=== PATIENT | female | born 1995 | race Two or more races ===

== ENCOUNTER 2016-09-28 08:14 | Emergency (ER) | payer OTHER ==
[~2016-09-28] VITALS: Ht 160 cm; Wt 77.1 kg
--- NOTE | ~2016-09-28 | CT2 ---
[facility] A Service of [facility] RADIOLOGY TEXT RESULTS PATIENT: OLEG NOE LOCATION: [facility] : [birth year] UNIT #: [id number] AGE: [address]: Jasmin Marie APRN SEX: F ORDER DR: [id number] [facility] [address] [place], [place] [address] [id number] MR#: [id number] #: [id number] NAME: OLEG NOE : 1995 SEX: F STUDY DATE/TIME: 09/28/2016 11:04 UNIT: [facility] ROOM: STUDY DESCRIPTION: CT Abd and Pelv W Cont Attending Physician: Jasmin Marie A.P.R.N. Ordering Physician: Ed Blaze Verdugo M.D. [facility]AG[facility] REPORT This report is preliminary unless electronic signature is present EXAM CT abdomen and pelvis with contrast, 09/28/2016, 1104 hours. CLINICAL HISTORY 21-year-old with epigastric pain, right-sided abdominal pain in the right lower quadrant with nausea, vomiting and diarrhea since 09/27/2016. COMPARISON None. TECHNIQUE Dynamic helical CT images were obtained from the lung bases through the pubic symphysis with intravenous contrast only. Sagittal and coronal reconstructions were performed. Total exam DLP 1068 mGy-cm. This CT exam was performed with one or more of the following radiation dose reduction techniques: automatic exposure control, adjustment of mA and/or kV according to patient size, and iterative reconstruction. FINDINGS Images through the lung bases are clear. There are no effusions. The distal esophagus is normal. Images through the abdomen post contrast demonstrate a normal appearance to the liver, spleen, pancreas, gallbladder and bile ducts. The adrenal glands are normal. The kidneys enhance normally and there is excretion into nondilated renal collecting systems and ureters. No ureteral calculus is seen. The bladder is normal. The abdominal aorta is normal in caliber. Unopacified stomach is contracted but normal in appearance. There is no small bowel distension. There is no small bowel wall thickening. The appendix is normal. Terminal ileum and cecum are normal. The colon is decompressed. There is no colonic wall thickening. [facility] A Service of [facility] RADIOLOGY TEXT RESULTS PATIENT: OLEG NOE NIDASMITA LOCATION: [facility] : [birth year] UNIT #: [id number] AGE: [address]: Jasmin Marie APRN SEX: F ORDER DR: CT pelvis demonstrates a normal sized uterus with intrauterine device present. There are small physiologic follicular cysts on the ovaries. There is no free fluid. Bone window images demonstrate no lumbar abnormalities. There is mild sclerotic change bilaterally at the sacroiliac joints. IMPRESSION 1. Essentially negative CT scan of the abdomen and pelvis with IV contrast. The gallbladder, bile ducts, pancreas, kidneys and ureters, terminal ileum and appendix are normal. There is no distension of the small bowel or colon. 2. Negative CT pelvis with intrauterine device within the uterus. 3. Mild sclerotic change of both sacroiliac joints. Dictated by... Radha Espinosa M.D. THIS IS AN ELECTRONICALLY VERIFIED REPORT Radha Espinosa M.D. at 09/29/2016 3:27 PM Kalyan TD: 09/28/2016 16:16 JOB #: [id number] MEDICAL IMAGING REPORT Page 1 of 1 COPY
[2016-09-28 09:51] LABS: BASOPHIL% 0.2 % (0-2.5); EOSINOPHIL% 0.2 % (0.0-7.0); HEMOGLOBIN 12.5 gm/dL (12.0-16.0); LYMPHOCYTE# 0.7 X10e3 (1.0-3.5); LYMPHOCYTE% 6.5 % (17.0-45.0); MEAN CELL VOLUME 82.4 FL (83-96); MEAN CORPUSCULAR HEMOGLOBIN 27.2 PG (28-34); MONOCYTE# 0.5 X10e3 (0-1.0); MONOCYTE% 4.1 % (3.0-12.0); NEUTROPHIL# 9.9 X10e3 (1.5-7.1); PLATELET COUNT 206 X10e3 (140-420); RED BLOOD COUNT 4.61 X10e (3.90-5.30); RED CELL DISTRIBUTION WIDTH 13.3 % (11.0-15.5); WHITE BLOOD COUNT 11.2 X10e3 (4.0-10.5)
[2016-09-28 09:52] LABS: DIFF IND NO
[2016-09-28 10:01] LABS: URINE SOURCE CLEAN CATCH
[2016-09-28 10:10] LABS: URINE APPEARANCE CLEAR; URINE BILIRUBIN NEG (NEG); URINE BLOOD NEG (NEG); URINE COLOR YELLOW; URINE GLUCOSE NEG (NEG); URINE KETONE NEG (NEG); URINE LEUKOCYTE ESTERASE 1+ (NEG); URINE NITRATE NEG (NEG); URINE PH 8.5 (5-8); URINE PROTEIN TRACE (NEG); URINE UROBILINOGEN 0.2 MG/DL (NEG)
[2016-09-28 10:12] LABS: CULTURE INDICATED? YES; URBCS1 AUWI 0-2 /[HPF] (0-2); URINE BACTERIA AUWI 3+ (NEGATIVE); URINE SQUAMOUS EPITHELIAL CELL FEW /[HPF]
[2016-09-28 10:16] LABS: ALBUMIN SERUM 4.3 g/dL (3.5-5.0); BILIRUBIN, DIRECT 0.1 mg/dL (0.0-0.2); BILIRUBIN,INDIRECT 0.7 mg/dL (0.0-0.9); BILIRUBIN,TOTAL 0.8 mg/dL (0.2-2.0); BUN/CREATININE RATIO 18.33; CALCIUM SERUM 9.3 mg/dL (8.4-10.2); CREATININE SERUM 0.6 mg/dL (0.6-1.4); GLOM FILT RATE Estimated 128.5 mL/min (>60); POTASSIUM 3.9 mmol/L (3.5-5.1); PROTEIN TOTAL SERUM 7.5 g/dL (6.0-8.3)
[2016-10-02 19:04] LABS: CHLAMYDIA TRACH Not Detected (Not Detected); N GONOR Not Detected (Not Detected)
== END 2016-09-28 13:41 | disposition home or self-care (01) ==
LOC: CED 08:14
PROVIDERS: Nurse Practitioner
DX: N39.0 Urinary tract infection, site not specified (principal)
CPT/HCPCS: 36415; 74177; 80048; 80076; 81003; 82150; 83690; 84703; 85025; 87086; 87491; 87591; 87651; 87808; 87905; 96361; 96374; 96375; 99284; C9113; J2405; Q9967